=== PATIENT | male | born 1995 | race Caucasian/White ===

== ENCOUNTER 2016-12-11 09:42 | Emergency (ER) | payer BC ==
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
[2016-12-11] MEDS ORDERED: ONDANSETRON 4 MG TAB.RAPDIS PO ONE (11:08)
[2016-12-11] MEDS ORDERED: ACETAMINOPHEN WITH CODEINE #3 TABLET PO ONE (11:09)
[2016-12-11 12:28] VITALS: BP 108/71
== END 2016-12-11 12:37 | disposition home or self-care (01) ==
LOC: ER 09:42
DX: S06.0X0A Concussion without loss of consciousness, initial encounter (principal); S09.90XA Unspecified injury of head, initial encounter; R51 Headache; Y04.8XXA Assault by other bodily force, initial encounter
CPT/HCPCS: 99284; 70450; S0119